=== PATIENT | female | born 1965 | race Two or more races ===

== ENCOUNTER 2021-08-15 09:25 | Emergency (ER) | payer OTHER ==
[~2021-08-15] VITALS: Ht 167.6 cm; Wt 74.8 kg
[2021-08-15 10:02] VITALS: BP 112/94
== END 2021-08-15 10:29 | disposition home or self-care (01) ==
LOC: ER 09:25
DX: S90.422A Blister (nonthermal), left great toe, initial encounter (principal); I10 Essential (primary) hypertension; Z86.73 Personal history of transient ischemic attack (TIA), and cerebral infarction without residual deficits; X58.XXXA Exposure to other specified factors, initial encounter; Y93.89 Activity, other specified; Y92.89 Other specified places as the place of occurrence of the external cause; Y99.8 Other external cause status